=== PATIENT | male | born 1990 | race Caucasian/White ===

== ENCOUNTER 2024-03-15 22:22 | Emergency (ER) | payer BC, SELFPAY ==
[2024-03-15 22:24] VITALS: BP 146/102
[2024-03-15 22:48] LABS: % Basophils 0.4 % (0-2); % Eosinophils 0.5 % (0-6); % Immature Granulocytes 0.4 % (0-0.5); % Lymphocytes 10.3 % (20.5-51.1); % Neutrophils 82.4 % (42.2-75.2); Absolute Eosinophils 0.1 10^3/uL (0-0.7); Absolute Lymphocytes 1.2 10^3/uL (1.2-3.4); Absolute Monocytes 0.7 10^3/uL (0.1-0.6); Absolute Neutrophils 9.4 10^3/uL (1.4-6.5); Hematocrit 41.1 % (39.0-52.0); Hemoglobin 13.7 g/dL (13.0-18.0); Mean Corp Hgb Conc. 33.3 g/dL (33.0-37.0); Mean Corpuscular Hgb 29.9 pg (27.0-31.0); Mean Corpuscular Volume 89.7 fL (80.0-94.0); Mean Platelet Volume 10.3 fL (7.4-10.4); Nucleated Red Blood Cells % 0 % (-); Platelet Count 177 10^3/uL (130-400); Red Blood Cell Count 4.58 10^6/uL (4.70-6.10); Red Cell Dist. Width 12.5 % (11.5-14.5); White Blood Cell Count 11.4 10^3/uL (4.8-10.8)
[2024-03-15 23:02] LABS: ALT (SGPT) 30 U/L (0-50); AST (SGOT) 29 U/L (17-59); Albumin 4.6 g/dl (3.5-5.0); Alkaline Phosphatase 47 U/L (38-126); Blood Urea Nitrogen 14 mg/dl (9-20); Calcium 9.2 mg/dl (8.4-10.2); Carbon Dioxide 30 mmol/L (22-30); Chloride 99 mmol/L (98-107); Glucose 119 mg/dl (70-99); Potassium 4.5 mmol/L (3.5-5.1); Sodium 137 mmol/L (135-145); Total Bilirubin 0.3 mg/dl (0.2-1.3); Total Protein 6.8 g/dl (6.3-8.2); eGFR > 60.00
[2024-03-15 23:03] LABS: COVID-19 Antigen Negative (Negative)
[2024-03-16 00:09] VITALS: BP 127/78
[2024-03-16 00:10] VITALS: BMI 37.1
[2024-03-16 01:00] VITALS: BP 128/83
--- NOTE | 2024-03-16 01:36 | ED.GENMED ---
History of Present Illness
General
Chief Complaint: Fever
Source: patient, spouse (Significant other) and other (Patient brings with him endoscopy procedure report for review. This has been scanned into the EHR.)
Exam Limitations: none
Time Seen by Provider: 03/16/24 00:54
Nursing documentation reviewed up to this point in time: agreed with
History of Present Illness
History of Present Illness:
This is a 33-year-old gentleman who has history of GERD, Tena's esophagus maintained on omeprazole 40 mg daily. He underwent routine surveillance upper endoscopy earlier today, performed by Dr. Wong at [facility].
Endoscopy showed irregular Z-line, antral gastritis and a duodenal polyp. Multiple biopsies of distal esophagus, antral mucosa as well as duodenal polypectomy performed reportedly without incident. No reported complications.
He returned home around 4:30 PM and was feeling well but then this evening developed chills, aches and low-grade fever.
As per postprocedure instructions, he presented to the ED for further evaluation due to onset of fever.
He does note mild sore throat but has no difficulty swallowing nor pain with swallowing, no chest pain or abdominal pain after swallowing water. He did note mild upper abdominal ache which has since resolved.
He denies cough nor shortness of breath, no chest pain, no headache, no nasal congestion or ear pain, no nausea nor vomiting, no diarrhea nor constipation. No hematochezia.
No close contacts with similar symptoms.
He has not taken anything for symptoms.
Past History
Past History
ED Past Medical History: GERD (Tena's esophagus) and Hypercholesterolemia
ED Past Surgical History: Other (Colonoscopy, upper endoscopies x 2, nasal surgery)
Social History
Tobacco: Non-smoker
Alcohol: Occasional
Drug: None
Personal:
Living: with family
Employment: Employed
Family History
Family History: Other (Noncontributory)
Phy Exam
Physical Exam
Physical Exam:
GENERAL: 33-year-old gentleman appears his stated age, bright and alert, pleasant, appears in no acute distress. Easily communicative. Low-grade fever noted with Tmax of 100 �F. Currently 99 �F.
EYE: anicteric
NECK: Supple, nontender, no meningismus, no significant adenopathy.
ENT: posterior pharynx has very minimal redness left tonsillar arch without edema nor exudate nor ulceration, oral mucosa is moist. No postnasal drip. TM clear b/l, nares patent.
CARDIAC: Regular rate and rhythm. no murmur.
LUNGS: Clear breath sounds bilaterally, no acute respiratory distress, no wheezes/rales/rhonchi. No palpable chest wall tenderness.
ABDOMEN: Soft, nondistended, without focal tenderness, no r/g, no cvat. normoactive BS.
NEUROLOGICAL: Alert and oriented x3, no focal neuro deficits. Gait is steady.
SKIN: Warm and dry, normal color, skin intact. No rash.
MUSCULOSKELETAL: No C/C/E. peripheral pulses are full and equal b/l. No palpable tenderness.
PSYCH: Normal and appropriate interaction.
Course
Orders/Labs/Results
Orders:
Orders
03/15/24 22:40
CMP [Comprehensive Metabolic Panel] Urgent
COVID-19 Antigen Urgent
Source: Nasal Swab
Complete Blood Count/With Diff Urgent
Influenza A+B Rapid Molecular Urgent
MIREYA Source: Nasal Swab
Specimen Description:
03/16/24 01:34
Acetaminophen [Tylenol] 1,000 mg PO NOW STA
CR Chest - 2 Views Urgent
Comment:
Reason For Exam: acute fever tonight; endoscopy w bx yesterday
Abnormal Lab Results
03/15/24
22:40
WBC 11.4 H 10^3/uL
(4.8-10.8)
RBC 4.58 L 10^6/uL
(4.70-6.10)
Absolute Neuts (auto) 9.4 H 10^3/uL
(1.4-6.5)
Absolute Monos (auto) 0.7 H 10^3/uL
(0.1-0.6)
Neutrophils % 82.4 H %
(42.2-75.2)
Lymphocytes % 10.3 L %
(20.5-51.1)
Glucose 119 H mg/dl
(70-99)
03/15/24 22:40
03/15/24 22:40
Vital Signs
Initial and Last Documented VS:
Initial Vital Signs
Temp Pulse Resp BP Pulse Ox
99.5 F 118 18 146/102 96
03/15/24 22:24 03/15/24 22:24 03/15/24 22:24 03/15/24 22:24 03/15/24 22:24
Last Documented Vital Signs
Temp Pulse Resp BP Pulse Ox
100 F 98 18 129/88 97
03/16/24 00:16 03/16/24 03:12 03/15/24 22:24 03/16/24 03:12 03/16/24 03:12
MDM/Problems Addressed
Differential Diagnosis Includes:
Concern for acute viral syndrome, aspiration, occult pneumonia.
Overall exam is benign, patient has had no chest pain, abdomen is soft without appreciable tenderness, nothing on exam to suggest perforation nor GI bleeding.
Labs reveal mildly elevated white blood cell count of 11.4, unremarkable chemistries. Normal H&H.
COVID and influenza testing are negative.
Will give Tylenol for low-grade fever and will check chest x-ray.
With reassuring nontender abdominal exam, at this point no indication for CT.
MDM/Problems Addressed:
Acute fever status post endoscopic procedure.
History of GERD/Tena's esophagus.
Chronic conditions affecting care: Other (GERD/Tena's esophagus)
*Radiology
Radiology exam reviewed: preliminary read by ED provider (Chest x-ray shows small nodular density right lower lobe versus vessel on and. No evidence of infiltrate. No effusion. Normal heart size. Normal mediastinum. No free air under the
diaphragm.)
*Pulse Oximetry
Patient hypoxic: no
*Critical Care Note
Total Time (30-74mins, 75-104mins- exclusive of procedures): Not Applicable
Update Note
Update Note:
03:00
Patient feeling improved after Tylenol
Tolerating oral fluids well without chest pain or abdominal pain.
Fevers dissipated.
Chest x-ray is unremarkable.
Recommend supportive measures, staying well-hydrated, bland diet. Continue Tylenol as needed for fever, aches.
Prompt follow-up with PCP for recheck, especially if fever persists after 24/48 hours.
Return precautions discussed.
ED Attending Note
-
Portions of this chart may have been created with voice recognition software.� Occasional wrong word or��sound alike� substitutions may have occurred due to the inherent limitations of voice recognition software.
Discharge Plan
Departure
Patient Disposition: Home (Routine Discharge)
Date of Disposition: 03/16/24
Time of Disposition: 03:00
Patient with high blood pressure during this ER visit?: No
Condition: Good
Discharge Problem:
Febrile illness, acute
Instructions: Fever, Adult (DC), Viral Syndrome (DC)
Prescriptions:
No Action
acetaminophen [Tylenol] 325 mg Tablet
650 mg PO Q4HPRN PRN (Reason: headache)
atorvastatin 10 mg tablet
10 mg PO DAILY
bismuth subsalicylate [Pepto-Bismol] 262 mg/15 mL Suspension
524 mg PO DAILYPRN PRN (Reason: abd pain)
albuterol sulfate 90 mcg/actuation HFA aerosol inhaler
2 puff INHALATION R Q4HPRN PRN (Reason: sob)
omeprazole 20 mg Tablet,Delayed Release (Dr/Ec)
20 mg PO DAILY
Referrals:
Paty Waddell, DO [Family Provider] - Call in 1-3 days for appt
Interventions
Interventions:
*Risk Screen - Suicide Last Done: 03/16/24 00:10
*General Assessment Last Done: 03/16/24 00:10
*Neglect/Abuse Screening Last Done: 03/16/24 00:10
ED- Fall Risk Assessment Last Done: 03/16/24 00:10
*ED COVID-19 Vaccine History Last Done: 03/16/24 00:10
*Nursing Disposition Last Done: 03/16/24 03:30
ED- Neurological Assessment Last Done: 03/16/24 00:10
ED-Skin Assessment Last Done: 03/16/24 00:10
Discharge Date and Time
Discharge Date/Time: 03/16/24 03:30
Print Language: SWEDISH
[2024-03-16] MEDS: TYLENOL 1000 MG PO (01:45)
[2024-03-16 02:03] VITALS: BP 127/75
[2024-03-16 03:11] VITALS: BP 129/88
[2024-03-16 03:12] VITALS: BP 129/88
== END 2024-03-16 03:30 | disposition home or self-care (01) ==
LOC: EMR 22:22
PROVIDERS: EMERGENCY PHYSICIAN Emergency Medicine; FAMILY PHYSICIAN Family Medicine
DX: R50.9 Fever, unspecified (principal); K21.9 Gastro-esophageal reflux disease without esophagitis
CPT/HCPCS: 99284; 71046; 80053; 85025; 87502; 87811

== ENCOUNTER 2024-07-09 12:49 | Emergency (ER) | payer BC, SELFPAY ==
[2024-07-09 12:57] VITALS: BP 152/97
[2024-07-09 16:15] VITALS: BP 146/95
--- NOTE | 2024-07-09 16:32 | ED.GENMED ---
History of Present Illness
<Tiffanie Scott MANAGER [employer] - Last Filed: 07/11/24 00:19>
General
Chief Complaint: Back Pain
Source: patient
Exam Limitations: none
Time Seen by Provider: 07/09/24 16:31
Nursing documentation reviewed up to this point in time: agreed with
History of Present Illness
History of Present Illness:
33 yo male with history of HLD, GERD, chronic back pain. 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 He went to his PCP Dr. Waddell on 06/17 for tingling in left thigh and more persistent low back pain since March.
PCP ordered physical therapy which she started on 06/25 and his physical therapist found 'weakness in my left leg and hip' and ordered an MRI.
Patient states it was coincidental but his back pain suddenly worsened on 06/18, the day after he saw his PCP so he has also been going to a chiropractor.
He had his MRI 11 days ago and was called and told he had possible cauda equina. He has had no loss of control of bowel or bladder, he does say that he has numbness right above his buttock crack and in his right butt cheek. Denies weakness in his
legs and has had pain in his scrotum but no numbness in the saddle area.
Past History
<Tiffanie Scott, MANAGER [employer]ARM[employer] - Last Filed: 07/11/24 00:19>
Past History
ED Past Medical History: GERD (Tena's esophagus) and Hypercholesterolemia
ED Past Surgical History: Other (Colonoscopy, upper endoscopies x 2, nasal surgery)
Social History
Tobacco: Former smoker
Alcohol: Occasional
Drug: None
Personal:
Living: with family
Employment: Employed (Desk work)
Family History
Family History: Other (Noncontributory)
Review of Systems
<Tiffanie Scott, MANAGER [employer]ARM[employer] - Last Filed: 07/11/24 00:19>
Review of Systems
Allergies reviewed?: Yes
All Other Systems: ROS reviewed and negative except as documented in HPI and ROS
Musculoskeletal: Reports back pain (Chronic, worse in the past month)
Skin: Reports no symptoms
Neurological: Reports weakness (Mild left leg weakness) and numbness (Mild left thigh weakness)
Phy Exam
<Tiffanie Scott, MANAGER [employer] - Last Filed: 07/11/24 00:19>
Physical Exam
Physical Exam:
GENERAL: No acute distress. A&Ox3.
CONSTITUTIONAL: Afebrile.
EYES: clear, conjunctivae normal
ENMT: moist mucus membranes, Pharynx nl
RESPIRATORY: Regular respirations, nonlabored, lungs clear.
CARDIOVASCULAR: Regular rate and rhythm, no murmurs, no rubs.
GI: Soft, nontender, normal BS
MUSCULOSKELETAL: Moves with ease. Well perfused.
SKIN: Warm, dry, pink
PSYCH: Normal mood and affect. Well kept, interactive and appropriate
NEUROLOGIC: Awake, alert and oriented. Minimally decreased strength left lower extremity, minimally decreased sensation to touch left lateral thigh. No other neurological deficits, no dropfoot
Course
<Tiffanie Scott, MANAGER [employer] - Last Filed: 07/11/24 00:19>
Orders/Labs/Results
Orders:
Orders
07/09/24 17:58
Ibuprofen [Motrin] 600 mg PO NOW STA
Vital Signs
Initial and Last Documented VS:
Initial Vital Signs
Temp Pulse Resp BP Pulse Ox
98 F 92 16 152/97 96
07/09/24 12:57 07/09/24 12:57 07/09/24 12:57 07/09/24 12:57 07/09/24 12:57
Last Documented Vital Signs
Temp Pulse Resp BP Pulse Ox
97.9 F 76 18 138/93 100
07/09/24 18:02 07/09/24 18:02 07/09/24 18:02 07/09/24 18:02 07/09/24 18:02
<Jakob Dietz MD - Last Filed: 07/09/24 16:52>
Orders/Labs/Results
Orders:
Orders
07/09/24 17:58
Ibuprofen [Motrin] 600 mg PO NOW STA
Vital Signs
Initial and Last Documented VS:
Initial Vital Signs
Temp Pulse Resp BP Pulse Ox
98 F 92 16 152/97 96
07/09/24 12:57 07/09/24 12:57 07/09/24 12:57 07/09/24 12:57 07/09/24 12:57
Last Documented Vital Signs
Temp Pulse Resp BP Pulse Ox
97.9 F 76 18 138/93 100
07/09/24 18:02 07/09/24 18:02 07/09/24 18:02 07/09/24 18:02 07/09/24 18:02
<Tiffanie Scott NP - Last Filed: 07/11/24 00:19>
MDM/Problems Addressed
Differential Diagnosis Includes:
cauda equina
MDM/Problems Addressed:
33 yo male with history of HLD, GERD, chronic back pain. 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 He went to his PCP Dr. Waddell on 06/17 for tingling in left thigh and more persistent low back pain since March.
PCP ordered physical therapy which she started on 06/25 and his physical therapist found 'weakness in my left leg and hip' and ordered an MRI.
Patient states it was coincidental but his back pain suddenly worsened on 06/18, the day after he saw his PCP so he has also been going to a chiropractor.
He had his MRI 11 days ago and was called and told he had possible cauda equina. He has had no loss of control of bowel or bladder, he does say that he has numbness right above his buttock crack and in his right butt cheek. Denies weakness in his
legs and has had pain in his scrotum but no numbness in the saddle area.
Afebrile, NAD patient has report
Of his MRI on his phone: Impression:
'1. L4-L5 large disc herniation causing severe spinal canal stenosis with cauda equina compression. Severe bilateral subarticular recess stenosis and moderate bilateral neuroforaminal stenosis at this level.
2. L3-L4 disc bulge with small central protrusion, mild spinal canal stenosis and mild bilateral neuroforaminal stenosis
3. L5-S1 disc bulge with small central protrusion. Minimal retrolisthesis of L5 on S1.
4. prominent distention of the urinary bladder.'
Patient ambulating well with steady gait.
Minimal decrease sensation to touch left lateral thigh, minimally less strength left lower extremity
Dr. Dietz into evaluate patient, agrees with consulting Spine neurosurgery.
Spoke with Dr. Couch who states Dr. Ladn is accepting MD at [place].
Pt to be transferred.
<Tiffanie Scott NP - Last Filed: 07/11/24 00:19>
*Critical Care Note
Total Time (30-74mins, 75-104mins- exclusive of procedures): Not Applicable
ED Attending Note
<Tiffanie Scott NP - Last Filed: 07/11/24 00:19>
-
Portions of this chart may have been created with voice recognition software.� Occasional wrong word or��sound alike� substitutions may have occurred due to the inherent limitations of voice recognition software.
<Jakob Dietz MD - Last Filed: 07/09/24 16:52>
ED Attending Note
Patient seen and examined by attending physician: Yes
I performed the substantive portion of visit, reviewed & personally made and approve the management plan that is documented in note by myself or ELIDIA.: Yes
ED Attending Note:
I have seen and evaluated the patient with a [id number] encounter. I have spoken to the [[facility]] and involved in the medical history, the physical exam, medical decision making.
Evaluation and management service: agree unless noted differently below.
Results interpretation: agree unless noted differently below.
Patient is a 33-year-old man presenting to the emergency department with concerns for cauda equina seen on outpatient MRI. Patient states that he has been having progressive numbness tingling to the right lower extremity and then developed left
lower leg weakness. No urinary incontinence or retention. No recent injections. He was seeing physical therapy and steroids with mild improvement. Have an MRI completed on Monday and was told to come to the emergency department today given that
showed severe stenosis and cauda equina compression. During my evaluation patient is resting comfortably. He does have mild right lower extremity sensory deficits and mild left lower extremity weakness. I did review patient's outpatient MRI but
given patient's neuroexam concern for compression. Will discuss with neurosurgery for admission here versus transfer.
Discharge Plan
Departure
Patient Disposition: Acute Care Hospital
Date of Disposition: 07/09/24
Time of Disposition: 19:05
Condition: Good
Discharge Problem:
Cauda equina compression
Prescriptions:
No Action
acetaminophen [Tylenol] 325 mg Tablet
650 mg PO Q4HPRN PRN (Reason: headache)
atorvastatin 10 mg tablet
10 mg PO DAILY
bismuth subsalicylate [Pepto-Bismol] 262 mg/15 mL Suspension
524 mg PO DAILYPRN PRN (Reason: abd pain)
albuterol sulfate 90 mcg/actuation HFA aerosol inhaler
2 puff INHALATION R Q4HPRN PRN (Reason: sob)
omeprazole 20 mg Tablet,Delayed Release (Dr/Ec)
20 mg PO DAILY
Referrals:
UNKNOWN - PT DOES,NOT KNOW [Unknown Provider] -
Hospital Transfer
Other hospital: [place]
I certify that the patient requires transfer: Yes
Discussed case with accepting physician: Dr. Couch who states Dr. Land is accepting
Reason for transfer: specialties available
Interventions
Interventions:
*Risk Screen - Suicide Last Done: 07/09/24 12:57
*General Assessment Last Done: 07/09/24 18:01
*Neglect/Abuse Screening Last Done: 07/09/24 12:57
*ED- Fall Risk Assessment Last Done: 07/09/24 18:01
*Nursing Disposition Last Done: 07/09/24 19:09
ED-Musculoskeletal Assessment Last Done: 07/09/24 17:47
Discharge Date and Time
Discharge Date/Time: 07/09/24 19:14
Print Language: CITIZEN [place]
[2024-07-09 18:02] VITALS: BP 138/93
[2024-07-09 18:03] VITALS: BMI 33.6
[2024-07-09] MEDS: MOTRIN 600 MG PO (18:26)
== END 2024-07-09 19:14 | disposition short-term general hospital (02) ==
LOC: EMR 12:49
PROVIDERS: EMERGENCY PHYSICIAN Student in an Organized Health Care Education/Training Program; FAMILY PHYSICIAN Family Medicine
DX: G83.4 Cauda equina syndrome (principal); K21.9 Gastro-esophageal reflux disease without esophagitis; E78.00 Pure hypercholesterolemia, unspecified; Z87.891 Personal history of nicotine dependence
CPT/HCPCS: 99283